=== PATIENT | female | born 1975 | race Two or more races ===

== ENCOUNTER 2020-04-09 00:11 | Emergency (ER) | payer OTHER ==
[~2020-04-09] VITALS: Ht 157.5 cm; Wt 56.7 kg
[2020-04-09] MEDS ORDERED: INTESTINEX680 M2 PO (03:14)
[2020-04-09] MEDS ORDERED: DOXYCYCLINE HY100 M2 PO (03:14)
== END 2020-04-09 03:39 | disposition home or self-care (01) ==
LOC: ER 00:11
DX: N94.19 Other specified dyspareunia (principal); N89.8 Other specified noninflammatory disorders of vagina; A63.8 Other specified predominantly sexually transmitted diseases; B96.29 Other Escherichia coli [E. coli] as the cause of diseases classified elsewhere; Z20.822 Contact with and (suspected) exposure to COVID-19